=== PATIENT | female | born 1960 | race Caucasian/White ===

== ENCOUNTER 2016-03-27 13:52 | Observation (INO) ==
--- NOTE | 2016-03-27 14:08 | Emergency Department Note ---
Disposition Clinical Impression: Lactic acidosis, Vomiting, Cholelithiasis, Gallbladder disease Disposition: Admitted As Inpatient Condition: Fair Referrals: NO,PCP [Non-Partnered Physician] - Forms: ED Satisfaction Letter General Adult HPI - General Chief complaint: ED Recheck/Abnormal Lab/Rx Stated complaint: "gallbladder" - History of Present Illness HPI Narrative: 55[facility] for flank pain and a CT indicated cholecystitis. The patient denies any trauma, no urinary symptoms. She has had no overt abdominal pain, she has had some nonbloody emesis, no diarrhea. No chest pain or shortness of breath. She has had no fever. She reports the pain started this morning. There is no history of vaginal discharge or bleeding. No urinary symptoms. There is no history of syncope or weakness or numbness in the legs or bowel or bladder problems no trouble walking talking hearing seeing or speaking. There is been no confusion fever or rash. The patient has had no other complaint or concern. The pain occurred suddenly at about 2 AM. [facility] which was essentially negative for acute disease, a CT abdomen and pelvis reveal a 2 cm gallstone with pericholecystic fluid, the patient's laboratory testing was unrevealing, she was sent to the ED for evaluation regarding acute cholecystitis. Onset (ago): hour(s) - Related Data Allergies Allergy/AdvReac Type Severity Reaction Status Date / Time No Known Allergies Allergy Verified 03/27/16 14:12 All systems ED: reviewed and negative except as stated. Past Medical History - Past Medical History Medical history: Reports: other (Breast cancer) Physical Exam - General Limitations: no limitations General appearance: alert, in no apparent distress - Head Head exam: atraumatic, normocephalic, normal inspection - Eye Eye exam: Present: normal appearance, PERRL, EOMI. Absent: scleral icterus, conjunctival injection - ENT ENT exam: normal exam, normal oropharynx, mucous membranes moist, TM's normal bilaterally, normal external ear exam - Neck Neck exam: Present: normal inspection, full ROM, trachea midline - Chest Chest inspection: Present: symmetric chest wall rise. Absent: tenderness - Respiratory Respiratory exam: Present: normal lung sounds bilaterally. Absent: respiratory distress - Cardiovascular Cardiovascular exam: Present: regular rate, normal rhythm, normal heart sounds - Abdominal Exam Abdominal exam: Present: soft, Non-Tender. Absent: tenderness, distention, guarding, rebound, rigidity, trauma, pulsatile mass - Extremities Exam Extremities exam: Present: normal inspection, full ROM, normal capillary refill. Absent: tenderness, pedal edema, joint swelling, calf tenderness - Expanded Lower Extremity Exam Neurovascular/Tendon exam: Present: normal capillary refill. Absent: motor deficit, sensory deficit, tendon deficit, extremity cold to touch, pallor - Back Exam Back exam: Present: normal inspection, full ROM. Absent: tenderness, CVA tenderness (R), CVA tenderness (L), vertebral tenderness, straight leg raise (R) , straight leg raise (L) - Neurological Exam Neurological exam: Present: alert, oriented X3, CN II-XII intact. Absent: motor sensory deficit - Psychiatric Psychiatric exam: Present: normal affect, normal mood - Skin Skin exam: Present: warm, dry, intact, normal color. Absent: rash, cyanosis, diaphoresis, erythema, pallor, mottled Course Vital Signs Temperature 98.1 F 03/27/16 13:54 Pulse Rate 105 03/27/16 13:54 Respiratory Rate 16 03/27/16 13:54 Blood Pressure 146/80 03/27/16 13:54 O2 Sat by Pulse Oximetry 96 03/27/16 13:54 Temperature 98.1 F 03/27/16 13:54 Pulse Rate 105 03/27/16 13:54 Respiratory Rate 16 03/27/16 13:54 Blood Pressure 146/80 03/27/16 13:54 O2 Sat by Pulse Oximetry 96 03/27/16 13:54 Medical Decision Making - [facility] Narrative Medical decision making narrative: The patient appears to have acute cholecystitis via her CT imaging. She appears to be stable this time. IV antibiotics were ordered as well as fluids. The patient's serum lactate came back elevated. Ultrasound is not immediately available this time. I have consulted with Dr. Rahman general surgery, who recommends an ultrasound and medical consultation. I have consulted to Dr. Montenegro the hospitalist on-call who has accepted the patient to his care. - Lab Data Lab results reviewed: Yes I reviewed the patient's lab results. Lab Results 03/27/16 03/27/16 03/27/16 Range/Units 15:02 15:02 15:02 PT 11.1 (9.4-12.1) Seconds INR 1.0 APTT 31.4 (26.0-36.0) Seconds Lactic Acid 2.9 H (0.5-2.2) mmol/L Troponin I 0.00 (0-0.03) ng/mL C-Reactive Protein (Less than 5) mg/L Lipase (8-78) Units/L 03/27/16 Range/Units 15:02 PT (9.4-12.1) Seconds INR APTT (26.0-36.0) Seconds Lactic Acid (0.5-2.2) mmol/L Troponin I (0-0.03) ng/mL C-Reactive Protein 8 H (Less than 5) mg/L Lipase 9 (8-78) Units/L - Radiology Data Radiology results reviewed: Yes I reviewed the patient's radiology results.
[2016-03-27] MEDS ORDERED: 0.9 % Sodium Chloride 1,000 ML IVC ONE (14:58)
[2016-03-27] MEDS ORDERED: Ertapenem 1,000 MG in 0.9 % Sodium Chloride Mini Bag 100 ML IVPB SCH (15:00)
[2016-03-27 15:34] LABS: Prothrombin Time 11.1 Seconds (9.4-12.1)
[2016-03-27 15:37] LABS: Activated Partial Thrombo Time 31.4 Seconds (26.0-36.0); C-Reactive Protein 8 mg/L (Less than 5); Lipase 9 Units/L (8-78)
[2016-03-27] MEDS ORDERED: Ertapenem 1,000 MG in 0.9 % Sodium Chloride Mini Bag 100 ML IVPB ONE (15:40)
[2016-03-27] MEDS ORDERED: Naloxone 0.4 MG/ML INJ IVP PRN (18:36)
[2016-03-27] MEDS ORDERED: Ondansetron 4 MG/2 ML VIAL IVP PRN (18:36)
[2016-03-27] MEDS ORDERED: *HR* Morphine 2 MG/ML SYRINGE IVP PRN (18:36)
--- NOTE | 2016-03-27 18:46 | Internal Med History&Physical ---
Date of Encounter: 03/27/16 Time of Encounter: 18:44 Assessment and Plan (1) Acute cholecystitis Current visit: Yes Status: Acute I will continue with broad-spectrum IV antibiotics to cover gram-negative rods and anaerobes as well as enterococcus. Ertapenem is a good choice for now. General surgery was consulted. We will start nothing by mouth after midnight. We will obtain a nuclear medicine gallbladder scan. We will obtain blood cultures. (2) Nausea & vomiting Current visit: Yes Status: Acute Clear liquid diet as tolerated. Zofran for nausea. IV fluids to maintain hydration. Qualifiers: Vomiting type: unspecified Vomiting Intractability: non-intractable Qualified Code(s): R11.2 - Nausea with vomiting, unspecified (3) Depression Current visit: Yes Status: Acute Continue with Effexor Qualifiers: Depression Type: major depressive disorder Major depression recurrence: recurrent Active/Remission status: in remission of unspecified degree Qualified Code(s): F33.40 - Major depressive disorder, recurrent, in remission, unspecified (4) Cholelithiasis Current visit: Yes Status: Acute Follow-up with surgery. HIDA scan. Nothing by mouth past midnight. She will require cholecystectomy inpatient or scheduled outpatient. Qualifiers: Cholelithiasis location: gallbladder Cholecystitis presence: with cholecystitis Cholecystitis acuity: acute and chronic Biliary obstruction: without biliary obstruction Qualified Code(s): K80.12 - Calculus of gallbladder with acute and chronic cholecystitis without obstruction (5) Lactic acidosis Current visit: Yes Status: Acute IV fluid hydration. (6) DVT prophylaxis Current visit: Yes Status: Acute Encourage early ambulation. She does not require pharmacological prophylaxis due to her ambulatory status. Internal Medicine - H&P: HPI Chief complaint: Right flank pain Admitted From: Emergency Dept Plans for Post Hospital Care: Home History of present illness: Ms. Bush is a 55 year old female with past medical history significant for depression and breast cancer status post bilateral mastectomy who presented to the emergency department transferred from [place] for evaluation of right flank pain that started 24 hours ago was described as severe, sharp, with no aggravating factors, pain improved with administration of IV opiates at the [place], currently has subsided. Pain was associated with nausea and profuse vomiting. Denies hematemesis diarrhea constipation syncope chest pain shortness of breath. A temporary review of systems was otherwise negative Family history reviewed and found to be noncontributory to this acute presentation. Past Med Surg Social Fam HX - Past Medical History Medical history: other (Breast cancer) Psychiatric history: no psych history - Social History Smoking Status: Former smoker Smokeless Tobacco Status: No Alcohol use: occasionally Drug use: none Internal Medicine - H&P: Meds Cholecalciferol (D-3) [Vitamin D] 2,000 unit PO DAILY 03/27/16 [History] Venlafaxine XR (24 HR) [Effexor XR] 75 mg PO QPM 03/27/16 [History] Venlafaxine XR (24 HR) [Effexor XR] 150 mg PO QAM 03/27/16 [History] Allergies No Known Allergies Allergy (Verified 03/27/16 14:12) All Systems PM: A 10-system review of systems was performed and is negative for pertinent findings except as documented above in the HPI. - Constitutional Vitals: Temp Pulse Resp BP Pulse Ox 98.1 F 106 16 153/86 97 03/27/16 13:54 03/27/16 16:53 03/27/16 17:41 03/27/16 17:41 03/27/16 16:53 General appearance: Present: A&O X 3, no acute distress - Eye Eye exam: Present: PERRL, conjuntiva pink, sclera anicteric Pupils: Present: PERRL - Neck Neck exam general surgery: Present: supple, trachea midline. Absent: lymphadenopathy - Respiratory Respiratory exam: Present: CTAB. Absent: accessory muscle use, rales, rhonchi, wheezes - Cardiovascular Cardiovascular exam: Present: RRR, +S1, +S2. Absent: diastolic murmur, gallop, rubs, systolic murmur - GI/Abdominal GI/Abdominal exam: Present: normal bowel sounds, soft, no peritoneal signs. Absent: distended, tenderness - Additional comments: No CVA tenderness bilaterally - Extremities Exam Extremities exam: Present: warm, radial pulses palpable and symetrical. Absent : calf tenderness, cyanotic, pedal edema - Neurological Exam Neurological exam: Present: CN II-XII intact, oriented X3, no focal deficits. Absent: pronater drift, facial droop, speech deficit - Skin Skin exam: Present: dry, intact Internal Med - H&P Results - Labs Labs: Lactic acid 2.9. INR 1.0. - Impressions CT abdomen and pelvis reviewed from [facility] medical record performed today reveals thickened gallbladder wall with pericholecystic stranding suggesting possible cholecystitis and a 2 cm gallstone.
[2016-03-27] MEDS: Venlafaxine XR (24 HR) 75 MG CAP.ER.24H PO SCH (20:14)
[2016-03-27] MEDS: 0.9 % Sodium Chloride 1,000 ML IVC SCH (20:16)
[2016-03-28 05:14] LABS: Basophils % 0.4 %; Eosinophils # 0.1 K/mcL (0.0-0.6); Eosinophils % 1.3 %; Hematocrit 32.6 % (35.3-44.9); Hemoglobin 10.4 g/dL (11.5-15.4); Immature Granulocytes % 0.3 % (0-4); Lymphocytes # 1.9 K/mcL (0.6-4.6); Lymphocytes % 24.3 %; Mean Corpuscular HGB Conc 31.9 g/dL (31.6-35.5); Mean Corpuscular Hemoglobin 26.5 pg (28.0-33.3); Mean Corpuscular Volume 83.2 fL (83.0-100.0); Mean Platelet Volume 8.7 fL (9.4-12.4); Monocytes # 0.5 K/mcL (0.0-1.3); Monocytes % 6.2 %; Neutrophils # 5.3 K/mcL (1.6-8.9); Platelet Count 197 K/mcL (140-400); Red Blood Count 3.92 M/mcL (3.82-4.97); Red Cell Distribution Width 13.2 % (11.5-14.5); Segmented Neutrophils % 67.5 %
[2016-03-28] MEDS: 0.9 % Sodium Chloride 1,000 ML IVC SCH ×2 (05:30→18:44)
[2016-03-28 05:32] LABS: Alanine Aminotransferase 9 Units/L (0-55); Albumin 2.8 g/dL (3.5-5.0); Alkaline Phosphatase 99 Units/L (38-126); Aspartate Amino Transferase 11 Units/L (5-34); BUN/Creatinine Ratio 15 (6-26); Bilirubin,Total 0.5 mg/dL (0.2-1.2); Blood Urea Nitrogen 9 mg/dL (7-20); Calcium 8.5 mg/dL (8.6-10.8); Carbon Dioxide 21 mEq/L (19-29); Chloride 110 mEq/L (98-109); Globulin 2.7 g/dL (2.4-3.5); Glucose 111 mg/dL (70-99); Magnesium 1.7 mg/dL (1.6-2.6); Osmolality,Calculated 287 (280-300); Potassium 3.7 mEq/L (3.5-4.5); Sodium 139 mEq/L (136-145); Total Protein 5.5 g/dL (6.0-8.3); eGFR For African Americans > 60 (> 60); eGFR For Non-African Americans > 60 (> 60)
[2016-03-28] MEDS: Venlafaxine XR (24 HR) 150 MG CAP.ER.24H PO SCH (11:05)
[2016-03-28] MEDS: Ertapenem 1,000 MG in 0.9 % Sodium Chloride Mini Bag 100 ML IVPB SCH (11:06)
--- NOTE | 2016-03-28 11:55 | Internal Med Progress Note ---
Date of Encounter: 03/28/16 Time of Encounter: 11:54 - Assessment and plan (1) Acute cholecystitis Current Visit: Yes Status: Acute Assessment and plan: HIDA scan showed no evidence of cholecystitis Surgery consultation appreciated patient does not want inpatient surgery and scheduled for cholecystectomy on Will advance diet continue IV fluids Zofran PRN n/v Pain control (2) Nausea & vomiting Current Visit: Yes Status: Acute Assessment and plan: Zofran prn Qualifiers: Vomiting type: unspecified Vomiting Intractability: non-intractable Qualified Code(s): R11.2 - Nausea with vomiting, unspecified (3) Lactic acidosis Current Visit: Yes Status: Resolved (4) DVT prophylaxis Current Visit: Yes Status: Acute Assessment and plan: Early ambulation (5) Depression Current Visit: Yes Status: Acute Assessment and plan: continue home medications Qualifiers: Depression Type: major depressive disorder Major depression recurrence: recurrent Active/Remission status: in remission of unspecified degree Qualified Code(s): F33.40 - Major depressive disorder, recurrent, in remission, unspecified - Subjective Interval history: Patient seen and examined at bedside. REports of feeling better compared to previous day. No nausea/vomiting reported at this time. Awaiting surgical consultation - Constitutional Vitals: Temp Pulse Resp BP Pulse Ox 98.2 F 98 16 145/83 97 03/28/16 10:50 03/28/16 10:50 03/28/16 10:50 03/28/16 10:50 03/28/16 10:50 General appearance: Present: cooperative, A&O X 3, no acute distress, obese, answers questions appropriately - Head Head exam: Present: atraumatic, normocephalic - Eye Eye exam: Present: normal appearance, conjuntiva pink, sclera anicteric - Respiratory Respiratory exam: Present: CTAB. Absent: respiratory distress, wheezes - Cardiovascular Cardiovascular exam: Present: RRR, +S1, +S2, tachycardia - GI/Abdominal GI/Abdominal exam: Present: normal bowel sounds, soft, no peritoneal signs. Absent: distended, rebound, tenderness - Extremities Exam Extremities exam: Present: warm, radial pulses palpable and symetrical. Absent : calf tenderness, pedal edema, tenderness - Neurological Exam Neurological exam: Present: alert, oriented X3 - Psychiatric Psychiatric exam: Present: normal affect, normal mood Internal Medicine: Result - Labs CBC & Chem 7: 03/28/16 04:56 03/28/16 04:56 Labs: Short CBC 03/28/16 Range/Units 04:56 WBC 7.9 (4.3-11.1) K/mcL Hgb 10.4 L (11.5-15.4) g/dL Hct 32.6 L (35.3-44.9) % Plt Count 197 (140-400) K/mcL Neutrophils # 5.3 (1.6-8.9) K/mcL BMP 03/28/16 04:56 Sodium 139 Potassium 3.7 Chloride 110 H Carbon Dioxide 21 BUN 9 Creatinine 0.61 Glucose 111 H Calcium 8.5 L Liver Function 03/28/16 Range/Units 04:56 Total Bilirubin 0.5 (0.2-1.2) mg/dL AST 11 (5-34) Units/L ALT 9 (0-55) Units/L Alkaline Phosphatase 99 (38-126) Units/L Albumin 2.8 L (3.5-5.0) g/dL - ABG Interpretation ABG results: PT/INR, D-dimer PT 11.1 Seconds (9.4-12.1) 03/27/16 15:02 Consult Discharge Plan - Plan Additional Instructions: Low fat diet Surgery office will contact you with time of arrival for Monday04/06/16 [facility] Provider[facility] - Prescriptions: Ondansetron HCl [Zofran] 4 mg PO Q6HR PRN #36 tablet PRN Reason: Nausea HYDROcodone/Acet 5/325 mg [[place] 5-325 mg] 1 tab PO Q6H PRN #30 tab PRN Reason: Pain
--- NOTE | 2016-03-28 13:19 | General Surgery Consult Note ---
Date of Encounter: 03/28/16 Time of Encounter: 08:30 Assessment and Plan (1) Cholelithiasis Current Visit: Yes Status: Acute Symptomatic cholelithiasis. HIDA scan demonstrated no evidence of cholecystitis. The patient prefers to have her cholecystectomy as an outpatient. She is scheduled for cholecystectomy on 04/06/16. Zofran 4mg Q6hr for nausea Clarissa 5-325mg Q6hr for pain Qualifiers: Cholelithiasis location: gallbladder Cholecystitis presence: without cholecystitis Biliary obstruction: without biliary obstruction Qualified Code(s): K80.20 - Calculus of gallbladder without cholecystitis without obstruction (2) Depression Current Visit: Yes Status: Acute Managed by medicine team. Qualifiers: Depression Type: major depressive disorder Major depression recurrence: recurrent Active/Remission status: in remission of unspecified degree Qualified Code(s): F33.40 - Major depressive disorder, recurrent, in remission, unspecified (3) Nausea & vomiting Current Visit: Yes Status: Acute Continue zofran for nausea and vomiting. Low fat diet. Qualifiers: Vomiting type: unspecified Vomiting Intractability: non-intractable Qualified Code(s): R11.2 - Nausea with vomiting, unspecified (4) Lactic acidosis Current Visit: Yes Status: Acute Managed by internal medicine team. (5) DVT prophylaxis Current Visit: Yes Status: Acute Early ambulation encourage. Patient being discharged today. History of Present Illness Consult date: 03/27/16 Reason for consult: abdominal pain Requesting physician: Richar Gan History of present illness: This is a 55 year old female with PMH significant for depression and breast cancer status post bilateral mastectomy who presented to the ED transferred [place] for right flank pain described as severe, sharp, and without aggravating factors. The patient current reports that she is comfortable and is not having abdominal pain or nausea at this time. She had a RUQ US, which demonstrated gallbladder wall thickening and cholelithiasis without CBD dilatation. The patient underwent HIDA scan subsequently, which did not demonstrate any evidence of acute cholecystitis. She currently only reports having a headache and feeling dehydrated. She denies numbness, weakness, and tingling. Past Med Surg Social Fam HX - Past Medical History Medical history: other Psychiatric history: no psych history - Past Surgical History Surgical History: breast surgery (bilateral mastectomy) - Social History Smoking Status: Former smoker Smokeless Tobacco Status: No Alcohol use: rarely, occasionally Drug use: none - Family History Father Hx Family Cardiac Disorders: (Heart disease) Medications and Allergies Cholecalciferol (D-3) [Vitamin D] 2,000 unit PO DAILY 03/27/16 [History] Venlafaxine XR (24 HR) [Effexor XR] 75 mg PO QPM 03/27/16 [History] Venlafaxine XR (24 HR) [Effexor XR] 150 mg PO QAM 03/27/16 [History] HYDROcodone/Acet 5/325 mg [Clarissa 5-325 mg] 1 tab PO Q6H PRN #30 tab 03/28/16 [Rx ] Ondansetron HCl [Zofran] 4 mg PO Q6HR PRN #36 tablet 03/28/16 [Rx] Allergies No Known Allergies Allergy (Verified 03/27/16 14:12) Review of Systems All systems PM: A 10-system review of systems was performed and is negative for pertinent findings except as documented above in the HPI. - Constitutional headache(s), no chills, no fatigue - Cardiovascular no chest pain - Respiratory no dyspnea, no wheezing - Gastrointestinal no diarrhea, no nausea, no vomiting - Genitourinary Genitourinary: no dysuria, no urinary frequency - Integumentary no rash - Neurological as per HPI General Surgery Exam Initial Vital Signs Temp Pulse Resp BP Pulse Ox 98.1 F 105 16 146/80 96 03/27/16 13:54 03/27/16 13:54 03/27/16 13:54 03/27/16 13:54 03/27/16 13:54 - General physical appearance well developed, well nourished, no distress - Eyes normal ocular movement - ENT no hearing loss - Neck trachea midline - Respiratory normal respiratory effort, clear to auscultation - Cardiovascular Cardiovascular exam: Present: RRR - Expanded Cardiovascular Exam Peripheral pulses: 2+: Radial (L), Radial (R) - Abdomen Abdomen general surgery: Present: bowel sounds present, soft, non tender ( Negative Smith's sign) - Integumentary Integumentary general surgery: Present: warm and dry - Neurologic Present: CN 2-12 grossly intact, normal coordination - Musculoskeletal Present: normal posture - Psychiatric Psychiatric general surgery: Present: A&Ox3, appropriate, oriented to person, oriented to place, oriented to time, speech is normal, memory intact Exam Initial Vital Signs Temp Pulse Resp BP Pulse Ox 98.1 F 105 16 146/80 96 03/27/16 13:54 03/27/16 13:54 03/27/16 13:54 03/27/16 13:54 03/27/16 13:54 Results - Labs 03/28/16 04:56 03/28/16 04:56 Abnormal lab results Hgb 10.4 g/dL (11.5-15.4) L 03/28/16 04:56 Hct 32.6 % (35.3-44.9) L 03/28/16 04:56 MCH 26.5 pg (28.0-33.3) L 03/28/16 04:56 MPV 8.7 fL (9.4-12.4) L 03/28/16 04:56 Chloride 110 mEq/L (98-109) H 03/28/16 04:56 Glucose 111 mg/dL (70-99) H 03/28/16 04:56 POC Glucose 118 (58-89) H 03/28/16 10:49 Calcium 8.5 mg/dL (8.6-10.8) L 03/28/16 04:56 C-Reactive Protein 8 mg/L (Less than 5) H 03/27/16 15:02 Serum Total Protein 5.5 g/dL (6.0-8.3) L 03/28/16 04:56 Albumin 2.8 g/dL (3.5-5.0) L 03/28/16 04:56 Albumin/Globulin Ratio 1.0 (1.1-2.2) L 03/28/16 04:56 Diabetes panel 03/28/16 Range/Units 04:56 Sodium 139 (136-145) mEq/L Potassium 3.7 (3.5-4.5) mEq/L Chloride 110 H (98-109) mEq/L Carbon Dioxide 21 (19-29) mEq/L BUN 9 (7-20) mg/dL Creatinine 0.61 (0.57-1.11) mg/dL Glucose 111 H (70-99) mg/dL Calcium 8.5 L (8.6-10.8) mg/dL AST 11 (5-34) Units/L ALT 9 (0-55) Units/L Alkaline Phosphatase 99 (38-126) Units/L Albumin 2.8 L (3.5-5.0) g/dL Calcium panel 03/28/16 Range/Units 04:56 Calcium 8.5 L (8.6-10.8) mg/dL Albumin 2.8 L (3.5-5.0) g/dL Pituitary panel 03/28/16 Range/Units 04:56 Sodium 139 (136-145) mEq/L Potassium 3.7 (3.5-4.5) mEq/L Chloride 110 H (98-109) mEq/L Carbon Dioxide 21 (19-29) mEq/L BUN 9 (7-20) mg/dL Creatinine 0.61 (0.57-1.11) mg/dL Glucose 111 H (70-99) mg/dL Calcium 8.5 L (8.6-10.8) mg/dL Adrenal panel 03/28/16 Range/Units 04:56 Sodium 139 (136-145) mEq/L Potassium 3.7 (3.5-4.5) mEq/L Chloride 110 H (98-109) mEq/L Carbon Dioxide 21 (19-29) mEq/L BUN 9 (7-20) mg/dL Creatinine 0.61 (0.57-1.11) mg/dL Glucose 111 H (70-99) mg/dL Calcium 8.5 L (8.6-10.8) mg/dL Total Bilirubin 0.5 (0.2-1.2) mg/dL AST 11 (5-34) Units/L ALT 9 (0-55) Units/L Alkaline Phosphatase 99 (38-126) Units/L Albumin 2.8 L (3.5-5.0) g/dL All other labs normal. Consult Discharge Plan - Plan Additional Instructions: Low fat diet Surgery office will contact you with time of arrival for Monday04/06/16 [facility] Care Provider[facility] - Prescriptions: Ondansetron HCl [Zofran] 4 mg PO Q6HR PRN #36 tablet PRN Reason: Nausea HYDROcodone/Acet 5/325 mg [[place] 5-325 mg] 1 tab PO Q6H PRN #30 tab PRN Reason: Pain - Attending Attestation I examined this patient and my medical decision-making was reviewed with the MASTER MERCHANDISER/PA/Advanced Practice Nurse/Resident Physician. I agree with the documented findings, disposition and treatment plan as described except to the extent set forth below.
[2016-03-28] MEDS ORDERED: Acetaminophen 325 MG TABLET PO PRN (14:13)
[2016-03-28] MEDS: Venlafaxine XR (24 HR) 75 MG CAP.ER.24H PO SCH (18:22)
--- NOTE | 2016-03-28 19:39 | Electrocardiograph Report ---
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
[2016-03-29] MEDS: 0.9 % Sodium Chloride 1,000 ML IVC SCH (05:22)
[2016-03-29 06:03] LABS: Basophils % 0.5 %; Eosinophils # 0.2 K/mcL (0.0-0.6); Eosinophils % 1.9 %; Hematocrit 31.2 % (35.3-44.9); Hemoglobin 10.4 g/dL (11.5-15.4); Immature Granulocytes % 0.1 % (0-4); Lymphocytes # 1.9 K/mcL (0.6-4.6); Lymphocytes % 23.9 %; Mean Corpuscular HGB Conc 33.3 g/dL (31.6-35.5); Mean Corpuscular Hemoglobin 27.3 pg (28.0-33.3); Mean Corpuscular Volume 81.9 fL (83.0-100.0); Mean Platelet Volume 9.2 fL (9.4-12.4); Monocytes # 0.5 K/mcL (0.0-1.3); Monocytes % 5.6 %; Neutrophils # 5.5 K/mcL (1.6-8.9); Platelet Count 179 K/mcL (140-400); Red Blood Count 3.81 M/mcL (3.82-4.97); Red Cell Distribution Width 13.1 % (11.5-14.5)
[2016-03-29 06:29] LABS: BUN/Creatinine Ratio 15 (6-26); Blood Urea Nitrogen 9 mg/dL (7-20); Calcium 8.3 mg/dL (8.6-10.8); Carbon Dioxide 22 mEq/L (19-29); Chloride 108 mEq/L (98-109); Glucose 124 mg/dL (70-99); Magnesium 1.7 mg/dL (1.6-2.6); Osmolality,Calculated 286 (280-300); Phosphorous 3.5 mg/dL (2.3-4.7); Potassium 4.2 mEq/L (3.5-4.5); Sodium 138 mEq/L (136-145); eGFR For African Americans > 60 (> 60); eGFR For Non-African Americans > 60 (> 60)
[2016-03-29] MEDS: Ertapenem 1,000 MG in 0.9 % Sodium Chloride Mini Bag 100 ML IVPB SCH (09:44)
[2016-03-29] MEDS: Venlafaxine XR (24 HR) 150 MG CAP.ER.24H PO SCH (09:45)
--- NOTE | 2016-03-29 11:50 | Discharge Summary ---
<BaldoAime Ronan - Last Filed: 03/29/16 12:46> Date of Encounter: 03/29/16 Time of Encounter: 09:00 - Discharge Diagnosis (1) Acute cholecystitis Status: Acute Comments: 03/29/16 Acute cholecystitis ruled out by HIDA Patient is tolerating regular diet today Vital signs stable, WBC this morning 8.0 Patient had a small bowel movement last night (2) Nausea & vomiting Status: Acute Comments: Resolved Qualifiers: Vomiting type: unspecified Vomiting Intractability: non-intractable Qualified Code(s): R11.2 - Nausea with vomiting, unspecified (3) Lactic acidosis Status: Resolved Comments: Resolved (4) Depression Status: Acute Comments: Continue home medication regimen Qualifiers: Depression Type: major depressive disorder Major depression recurrence: recurrent Active/Remission status: in remission of unspecified degree Qualified Code(s): F33.40 - Major depressive disorder, recurrent, in remission, unspecified (5) DVT prophylaxis Status: Acute Comments: Early ambulation - Discharge Medications Prescriptions: Ondansetron HCl [Zofran] 4 mg PO Q6HR PRN #36 tablet PRN Reason: Nausea Ciprofloxacin [Cipro] 500 mg PO BID #14 tablet HYDROcodone/Acet 5/325 mg [[place] 5-325 mg] 1 tab PO Q6H PRN #30 tab PRN Reason: Pain Home Medications: Cholecalciferol (D-3) [Vitamin D] 2,000 unit PO DAILY 03/27/16 [History] Venlafaxine XR (24 HR) [Effexor XR] 75 mg PO QPM 03/27/16 [History] Venlafaxine XR (24 HR) [Effexor Xr] 150 mg PO QAM 03/27/16 [History] Ciprofloxacin [Cipro] 500 mg PO BID #14 tablet 03/29/16 [Rx] HYDROcodone/Acet 5/325 mg [[place] 5-325 mg] 1 tab PO Q6H PRN #30 tab 03/29/16 [Rx ] Ondansetron HCl [Zofran] 4 mg PO Q6HR PRN #36 tablet 03/29/16 [Rx] Allergies/Adverse Reactions: Allergies No Known Allergies Allergy (Verified 03/27/16 14:12) Procedures/tests Complete & Pending: Procedures Performed prior 72 hours Category Date Time Status NM hepatobiliary [NM] Stat Exams 03/28/16 09:30 Completed Date of admission: 03/27/16 17:03 Primary care physician: PCP ID - Patient Status Disposition: Home, Self-Care Condition: Good Functional capacity at discharge: independent ambulation Overall status at discharge: patient is progressing back to baseline - Discharge Instructions Additional Instructions: Low fat diet Surgery office will contact you with time of arrival for Monday04/06/16 Follow-up with primary care physician within the next 7 days. Interval History: Patient seen and examined this morning. She was lying comfortably in bed in no acute distress. She states that she is still having some back pain located at midline right >left but that this is much improved. She denies other current complaints. She ate solid foods at breakfast and states that she was able to tolerate this well Hospital course: Ms. Bush is a 55 year old female who presented to the ED 01/24/17 from the ID for right-sided flank pain and back pain that had been going on for the radius 24 hours. She was also having nausea and vomiting. Her past medical history significant for depression, breast cancer (S/P bilateral mastectomy). She underwent an ultrasound of the gallbladder which showed cholelithiasis, nonspecific wall thickening, pericholecystic fluid suggestive of acute cholecystitis. There was no ductal dilatation. She subsequently had a HIDA scan that was negative for acute cholecystitis. She was seen by general surgery , patient declined cholecystectomy as inpatient and this has been scheduled for 04/06/16. During her hospital stay she was placed on ertapenem for broad- spectrum coverage of anaerobes + enterococcus. AST/ALT as well as WBCs were within normal limits. - Time Spent with Patient Total time spent providing and/or coordinating discharge services: - Constitutional Vitals: Temp Pulse Resp BP Pulse Ox 98.2 F 94 14 135/75 97 03/29/16 07:56 03/29/16 07:56 03/29/16 07:56 03/29/16 07:56 03/29/16 07:56 General appearance: Present: cooperative, A&O X 3, no acute distress, obese, answers questions appropriately - Head Head exam: Present: atraumatic, normocephalic - Eye Eye exam: Present: PERRL, conjuntiva pink, sclera anicteric - Neck Neck exam general surgery: Present: normal inspection, supple, trachea midline - Respiratory Respiratory exam: Present: CTAB. Absent: rales, rhonchi, wheezes - Cardiovascular Cardiovascular exam: Present: RRR, +S1, +S2 - GI/Abdominal GI/Abdominal exam: Present: normal bowel sounds (negative Smith's sign), soft. Absent: distended, tenderness - Extremities Exam Extremities exam: Present: warm. Absent: calf tenderness, pedal edema, tenderness - Neurological Exam Neurological exam: Present: alert, CN II-XII intact, oriented X3, no focal deficits - Psychiatric Psychiatric exam: Present: normal affect, normal mood - Skin Skin exam: Present: dry, intact <Zay Rice H - Last Filed: 03/29/16 13:08> Date of Encounter: 03/29/16 Procedures/tests Complete & Pending: Procedures Performed prior 72 hours Category Date Time Status NM hepatobiliary [NM] Stat Exams 03/28/16 09:30 Completed Date of admission: 03/27/16 17:03 Primary care physician: PCP ID - Patient Status Functional capacity at discharge: independent ambulation Overall status at discharge: patient is back to baseline - Diet and Activity Activity: increase activity as tolerated Diet: low fat, low cholesterol Hospital course: Ms. Bush is a 55 year old female - Time Spent with Patient Total time spent providing and/or coordinating discharge services: - Constitutional Vitals: Temp Pulse Resp BP Pulse Ox 98.2 F 100 14 127/77 96 03/29/16 12:07 03/29/16 12:07 03/29/16 12:07 03/29/16 12:07 03/29/16 12:07 - Attending Attestation Right upper quadrant pain likely secondary to Cholelithiasis Surgical procedure scheduled for April 06 The patient mentions that she started having bilateral back pain today and she thinks this could be related to kidney infections that she has been getting over the past few years. At home, she prefers to treated without antibiotics. I offered to do a urinalysis although it would be very unlikely for her to have urinary tract infection she received ertapenem during her hospitalization. She will have available a prescription for ciprofloxacin in case she would become symptomatic. Was advised to return to emergency room if her condition would worsen. I examined this patient and my medical decision-making was reviewed with the PRESS OPERATOR ASSISTANT/PA/Advanced Practice Nurse/Resident Physician. I agree with the documented findings, disposition and treatment plan as described except to the extent set forth below.
[2016-03-29 12:10] VITALS: BP 127/77
[2016-03-29 14:19] LABS: Bilirubin,Urine Negative (Negative); Blood,Urine Negative (Negative); Clarity,Urine Clear (Clear); Color,Urine Yellow (Yellow); Glucose,Urine (UA) Normal (Normal); Ketones,Urine Negative (Negative); Leukocyte Esterase,Urine Negative (Negative); Nitrite,Urine Negative (Negative); PH,Urine 6.5 pH Units (5.0-8.0); Protein,Urine Negative (Neg-Trace); Specific Gravity,Urine 1.014 (1.010-1.025); Urobilinogen,Urine Normal (Normal)
== END 2016-03-29 13:53 | disposition home or self-care (01) ==
LOC: 3ANU 13:52 → EMEROO 13:52 → SUATTDRO 17:03 → 3ANU 18:35
PROVIDERS: ADMIT Internal Medicine; ATTEND Internal Medicine

== ENCOUNTER 2020-09-10 12:53 | Observation (INO) ==
[2020-09-10] MEDS ORDERED: Naloxone 0.4 MG/ML INJ IVP PRN (17:17)
[2020-09-10] MEDS ORDERED: Ondansetron 4 MG/2 ML VIAL IVP PRN (17:17)
[2020-09-10] MEDS ORDERED: Melatonin 3 MG TABLET PO PRN (17:17)
[2020-09-10] MEDS ORDERED: Furosemide 40 MG/4 ML VIAL IVP ONE (17:52)
[2020-09-10] MEDS ORDERED: Isovue-370 500 ML BOTTLE IVP ONE (17:55)
[2020-09-10] MEDS ORDERED: Perflutren Lipid Microsphere 1.3 ML in 0.9 % Sodium Chloride 8.7 ML IVP PRN (17:56)
[2020-09-10] MEDS ORDERED: *HR* Metoprolol 5 MG/5 ML VIAL IVP PRN (17:59)
[2020-09-10] MEDS: Acetaminophen 325 MG TABLET PO PRN (18:53)
[2020-09-10 19:28] LABS: Hematocrit 35.3 % (35.3-44.9); Mean Corpuscular Hemoglobin 27.6 pg (28.0-33.3); Mean Corpuscular Volume 81.1 fL (83.0-100.0); Mean Platelet Volume 9.6 fL (9.4-12.4); Platelet Count 245 K/mcL (140-400); Red Blood Count 4.35 M/mcL (3.82-4.97); Red Cell Distribution Width 13.2 % (11.5-14.5); White Blood Count 11.6 K/mcL (4.3-11.1)
[2020-09-10 19:36] LABS: Estimated Average Glucose 117 mg/dl; Hemoglobin A1C 5.7 %
[2020-09-10 19:48] LABS: BUN/Creatinine Ratio 21 (6-26); Blood Urea Nitrogen 11 mg/dL (6-20); Calcium 9.2 mg/dL (8.6-10.3); Carbon Dioxide 23 mEq/L (23-29); Chloride 106 mEq/L (98-107); Glucose 98 mg/dL (70-105); Osmolality,Calculated 287 (280-300); Potassium 3.3 mEq/L (3.5-5.1); Sodium 139 mEq/L (136-145); eGFR For African Americans > 60 (> 60); eGFR For Non-African Americans > 60 (> 60)
[2020-09-10 19:49] LABS: Chol/HDL Ratio 4.9 (0-4.9); Cholesterol 233 mg/dL (< 200); HDL Cholesterol 48 mg/dL (40-59); LDL Cholesterol,Calculated 165 mg/dL (< 100); Magnesium 1.9 mg/dL (1.6-2.6); Triglycerides 99 mg/dL (< 150); Troponin I < 0.03 ng/mL (< 0.04)
[2020-09-10 20:00] LABS: Thyroid Stimulating Hormone 2.014 mcIU/mL (0.340-5.600)
[2020-09-10] MEDS ORDERED: diazePAM 2 MG TABLET PO PRN (21:03)
[2020-09-10] MEDS: *HR* Heparin 5,000 UNIT/ML VIAL SQ SCH (22:22)
[2020-09-11 03:18] LABS: Hematocrit 35.2 % (35.3-44.9); Hemoglobin 11.9 g/dL (11.5-15.4); Mean Corpuscular HGB Conc 33.8 g/dL (31.6-35.5); Mean Corpuscular Hemoglobin 27.7 pg (28.0-33.3); Mean Corpuscular Volume 81.9 fL (83.0-100.0); Mean Platelet Volume 9.5 fL (9.4-12.4); Platelet Count 236 K/mcL (140-400); Red Cell Distribution Width 13.5 % (11.5-14.5); White Blood Count 9.2 K/mcL (4.3-11.1)
[2020-09-11 03:40] LABS: BUN/Creatinine Ratio 17 (6-26); Blood Urea Nitrogen 10 mg/dL (6-20); Carbon Dioxide 25 mEq/L (23-29); Chloride 104 mEq/L (98-107); Glucose 111 mg/dL (70-105); Osmolality,Calculated 286 (280-300); Potassium 3.8 mEq/L (3.5-5.1); Sodium 138 mEq/L (136-145); eGFR For African Americans > 60 (> 60); eGFR For Non-African Americans > 60 (> 60)
[2020-09-11] MEDS: *HR* Heparin 5,000 UNIT/ML VIAL SQ SCH ×3 (05:17→23:01)
[2020-09-11] MEDS ORDERED: Metoprolol XL (24 HR) Succ 50 MG TAB.ER.24H PO SCH (09:00)
[2020-09-11] MEDS: Acetaminophen 325 MG TABLET PO PRN (10:45)
[2020-09-11] MEDS: FLUoxetine 20 MG CAPSULE PO SCH (10:45)
[2020-09-11] MEDS: lisinopriL 20 MG TABLET PO SCH (10:46)
[2020-09-11] MEDS: Cholecalciferol (D-3) 1,000 UNIT (25MCG) TABLET PO SCH (10:46)
[2020-09-11] MEDS ORDERED: Furosemide 40 MG/4 ML VIAL IVP SCH (11:45)
[2020-09-11 14:54] LABS: Bacteria,Urine Few per hpf (None-Few); Bilirubin,Urine Negative (Negative); Blood,Urine Negative (Negative); Clarity,Urine Clear (Clear); Color,Urine Colorless (Yellow); Glucose,Urine (UA) Normal (Normal); Ketones,Urine Negative (Negative); Leukocyte Esterase,Urine Trace (Negative); Mucus,Urine Few per lpf (None-Few); Nitrite,Urine Negative (Negative); PH,Urine 6.5 pH Units (5.0-8.0); Protein,Urine Negative (Neg-Trace); RBC,Urine 0-3 per hpf (0-3); Specific Gravity,Urine 1.009 (1.010-1.025); Squamous Epithelial Cell,Urine Few per hpf (None-Few); Urobilinogen,Urine Normal (Normal)
[2020-09-11 15:42] LABS: Adenovirus Not Detected (Not Detect); Bordetella Pertussis Not Detected (Not Detect); Chlamydophila pneumoniae Not Detected (Not Detect); Coronavirus 229E Not Detected (Not Detect); Coronavirus HKU1 Not Detected (Not Detect); Coronavirus NL63 Not Detected (Not Detect); Coronavirus OC43 Not Detected (Not Detect); Human Metapneumovirus Not Detected (Not Detect); Human Rhinovirus/Enterovirus Not Detected (Not Detect); Influenza A Subtype 2009 H1 Not Detected (Not Detect); Influenza B Not Detected (Not Detect); Mycoplasma pneumoniae Not Detected (Not Detect); Parainfluenza Virus 1 Not Detected (Not Detect); Parainfluenza Virus 2 Not Detected (Not Detect); Parainfluenza Virus 3 Not Detected (Not Detect); Parainfluenza Virus 4 Not Detected (Not Detect); Respiratory Syncytial Virus Not Detected (Not Detect); SARS-CoV-2 Not Detected (Not Detect)
[2020-09-11] MEDS: carvediloL 6.25 MG TABLET PO SCH (17:44)
[2020-09-11] MEDS ORDERED: Potassium Chloride 20 MEQ, Lidocaine 1% 2 ML in 0.9 % Sodium Chloride 250 ML IVPB ONE (19:32)
[2020-09-12] MEDS: (Potassium 99 MG Tablet) PO SCH ×2 (03:10→10:46)
[2020-09-12] MEDS: *HR* Heparin 5,000 UNIT/ML VIAL SQ SCH (05:59)
[2020-09-12 07:16] VITALS: BP 156/74; PULSE 86; TEMP 98; O2SAT 94
[2020-09-12 07:53] LABS: Hematocrit 36.3 % (35.3-44.9); Hemoglobin 12.2 g/dL (11.5-15.4); Mean Corpuscular HGB Conc 33.6 g/dL (31.6-35.5); Mean Corpuscular Hemoglobin 27.2 pg (28.0-33.3); Mean Platelet Volume 9.3 fL (9.4-12.4); Platelet Count 264 K/mcL (140-400); Red Blood Count 4.48 M/mcL (3.82-4.97); Red Cell Distribution Width 13.4 % (11.5-14.5); White Blood Count 9.9 K/mcL (4.3-11.1)
[2020-09-12 08:45] LABS: BUN/Creatinine Ratio 24 (6-26); Blood Urea Nitrogen 15 mg/dL (6-20); Calcium 8.7 mg/dL (8.6-10.3); Carbon Dioxide 25 mEq/L (23-29); Chloride 104 mEq/L (98-107); Glucose 112 mg/dL (70-105); Magnesium 1.8 mg/dL (1.6-2.6); Osmolality,Calculated 290 (280-300); Potassium 3.7 mEq/L (3.5-5.1); Sodium 139 mEq/L (136-145); eGFR For African Americans > 60 (> 60); eGFR For Non-African Americans > 60 (> 60)
[2020-09-12] MEDS ORDERED: Furosemide 40 MG TABLET PO SCH (09:00)
[2020-09-12] MEDS: FLUoxetine 20 MG CAPSULE PO SCH (10:40)
[2020-09-12] MEDS: carvediloL 6.25 MG TABLET PO SCH (10:40)
[2020-09-12] MEDS: Cholecalciferol (D-3) 1,000 UNIT (25MCG) TABLET PO SCH (10:40)
[2020-09-12] MEDS: lisinopriL 20 MG TABLET PO SCH (10:40)
== END 2020-09-12 15:25 | disposition home or self-care (01) ==
LOC: 3ANU → SUATTDRO 15:49
PROVIDERS: ADMIT Student in an Organized Health Care Education/Training Program; ATTEND Internal Medicine